=== PATIENT | female | born 1950 | race Caucasian/White ===

== ENCOUNTER 2016-11-10 14:32 | Emergency (ER) | payer MEDICARE ==
[~2016-11-10] VITALS: Ht 170.2 cm; Wt 83.9 kg
[2016-11-10 14:35] VITALS: BP 151/97; PULSE 137; RESP 16; TEMP 97.6; O2SAT 99
--- NOTE | 2016-11-10 14:37 | NUR ---
Placed on staff development coordinator rn, blood pressure machine and pulse oximeter. To gown for exam. Side rails up.
--- NOTE | 2016-11-10 14:37 | NUR ---
Recieved Pt in bed 3. Pt was brought in by EMT. Pt was at the [facility]. Pt c/o heart palpitation since last night 11/09/16. Pt states feeling SOB while walking up and down the stairs. Pt denies pain, discomfort, N/V.
--- NOTE | 2016-11-10 14:38 | NUR ---
Dr. Ramirez at the bedside evaluating Pt. Currently awaiting new orders.
[2016-11-10] MEDS ORDERED: NACL 0.9% 1,000 ML IV ONE (14:45)
[2016-11-10] MEDS ORDERED: METOPROLOL TARTRATE 5 MG/5 ML VIAL IVP ONE (14:45)
[2016-11-10] MEDS ORDERED: ASPIRIN 325 MG TABLET PO ONE (14:45)
[2016-11-10 14:59] LABS: BASOPHILS % (AUTO) 0.6 % (0.0-2.0); EOSINOPHILS # (AUTO) 0.1 K/uL (0.0-0.4); EOSINOPHILS % (AUTO) 1.7 % (0.0-4.0); HEMATOCRIT 43.6 % (36-48); HEMOGLOBIN 14.9 g/dL (12.0-16.0); LYMPHOCYTES # (AUTO) 2.1 K/uL (1.0-5.5); LYMPHOCYTES % (AUTO) 27.2 % (20.5-51.5); MEAN CORPUSCULAR HEMOGLOBIN 31 pg (27-31); MEAN CORPUSCULAR HGB CONC 34 % (32-36); MEAN CORPUSCULAR VOLUME 89 fL (79.0-98.0); MONOCYTES # (AUTO) 0.6 K/uL (0.0-1.0); MONOCYTES % (AUTO) 7.9 % (1.7-9.3); NEUTROPHILS # (AUTO) 4.8 K/uL (1.8-7.7); NEUTROPHILS % (AUTO) 62.6 % (40.0-70.0); PLATELET COUNT (AUTO) 201 K/uL (130-430); WHITE BLOOD COUNT (AUTO) 7.6 K/uL (4.8-10.8)
--- NOTE | 2016-11-10 15:11 | NUR ---
Radiology at the bedside performing cxr.
[2016-11-10 15:13] LABS: PROTHROMBIN TIME 10.4 SECS (9.5-12.5)
[2016-11-10 15:16] LABS: ALBUMIN 3.9 g/dL (3.4-4.8); CALCIUM 9.5 mg/dL (8.4-11.0); CREATININE 0.93 mg/dL (0.55-1.30); POTASSIUM 4.5 mmol/L (3.5-5.1); TOTAL BILIRUBIN 0.3 mg/dL (0.0-1.0); TOTAL PROTEIN, SERUM 7.9 g/dL (6.4-8.3)
--- NOTE | 2016-11-10 15:58 | NUR ---
Assisted Pt to the bathroom. Pt ambulated to the bathroom with minimal assist. Non slip sock provided. Gait steady.
--- NOTE | 2016-11-10 16:30 | NUR ---
Pt resting. Chest rise and fall noted. No s/s of pain or discomfort. will continue to monitor.
--- NOTE | 2016-11-10 18:00 | NUR ---
Assisted Pt to the bathroom. Gait steady.
--- NOTE | 2016-11-10 18:54 | NUR ---
updated Pt on transfer. Pt made aware Pt will be transfering to [facility]. Pt's son at the bedside. Informed Pt to call if Pt needs assistance with anything. Pt verbalized understanding. Will endorse oncoming RN to follow up with D/C orders from [facility].
--- NOTE | 2016-11-10 19:16 | NUR ---
Patient to be transferred to [facility] [phone]. Is being transferred due to higher level of care. Receiving facility has accepting physician and available space. ER physician has signed transfer form. Patient or responsible green party has agreed to transfer and signed form. Patient belongings inventoried and will be sent with patient. Copy of nursing notes, lab reports, EKG, Physicians Orders and X-rays to be sent with patient. Report called to Monika HERRERA at receiving facility. Receiving physician is Dr. Lui. [facility] has been called for transfer. ETA is 1945.
--- NOTE | 2016-11-10 19:20 | NUR ---
hand off to mat packer Stevan HERRERA
--- NOTE | 2016-11-10 19:25 | NUR ---
Pt is resting comfortably, but still complaining of chest palpatations. VSS. Will continue to monitor via machine setter. No other injuries or complaints mentioned/noted. No distress noted.
[2016-11-10 19:45] VITALS: BP 149/74; PULSE 74; RESP 20; TEMP 97.5; O2SAT 98
== END 2016-11-10 19:45 | disposition short-term general hospital (02) ==
LOC: SED 14:32
DX: I48.91 Unspecified atrial fibrillation (principal); Z91.02 Food additives allergy status
CPT/HCPCS: 36415; 71010; 80053; 84484; 85025; 85610; 85730; 93005; 96361; 96374; 99285; J3490; J7030

== ENCOUNTER 2018-02-11 20:08 | Emergency (ER) | payer MEDICARE, MEDICAID ==
[~2018-02-11] VITALS: Ht 172.7 cm; Wt 81.2 kg
[2018-02-11 20:15] VITALS: BP_SYST 151
[2018-02-11] MEDS ORDERED: NACL 0.9% 1,000 ML IV ONE (20:25)
[2018-02-11] MEDS ORDERED: ASPIRIN 81 MG TAB.CHEW PO ONE (20:30)
[2018-02-11 21:34] LABS: BASOPHILS % (AUTO) 0.6 % (0.0-2.0); EOSINOPHILS # (AUTO) 0.2 K/uL (0.0-0.4); EOSINOPHILS % (AUTO) 3.9 % (0.0-4.0); HEMATOCRIT 36.2 % (36-48); HEMOGLOBIN 12.4 g/dL (12.0-16.0); LYMPHOCYTES # (AUTO) 2.5 K/uL (1.0-5.5); LYMPHOCYTES % (AUTO) 44.1 % (20.5-51.5); MEAN CORPUSCULAR HEMOGLOBIN 32 pg (27-31); MEAN CORPUSCULAR HGB CONC 34 % (32-36); MEAN CORPUSCULAR VOLUME 93 fL (79.0-98.0); MONOCYTES # (AUTO) 0.6 K/uL (0.0-1.0); MONOCYTES % (AUTO) 9.9 % (1.7-9.3); NEUTROPHILS # (AUTO) 2.4 K/uL (1.8-7.7); NEUTROPHILS % (AUTO) 41.5 % (40.0-70.0); PLATELET COUNT (AUTO) 205 K/uL (130-430); RED CELL DISTRIBUTION WIDTH 12.7 % (9.0-15.0); WHITE BLOOD COUNT (AUTO) 5.7 K/uL (4.8-10.8)
[2018-02-11 21:50] LABS: CALCIUM 8.8 mg/dL (8.4-11.0); CREATININE 0.88 mg/dL (0.55-1.30); POTASSIUM 3.9 mmol/L (3.5-5.1); PROTHROMBIN TIME 9.9 SECS (9.5-12.5)
[2018-02-11 21:55] LABS: ALBUMIN 3.8 g/dL (3.4-4.8); TOTAL BILIRUBIN 0.3 mg/dL (0.0-1.0)
[2018-02-11] MEDS ORDERED: ONDANSETRON HCL 4 MG/2 ML VIAL IVP ONE (22:00)
[2018-02-11 22:20] LABS: BILIRUBIN,URINE NEGATIVE (NEGATIVE); BLOOD, URINE NEGATIVE (NEGATIVE); CLARITY/URINE CLEAR (CLEAR); COLOR,URINE YELLOW (YELLOW); GLUCOSE,URINE NEGATIVE (NEGATIVE); KETONES,URINE NEGATIVE (NEGATIVE); LEUKOCYTE ESTERASE ,URINE 1+ (NEGATIVE); NITRITE, URINE NEGATIVE (NEGATIVE); PROTEIN URINE NEGATIVE (NEGATIVE); UROBILINOGEN,URINE 0.2 (0.2-1.0)
[2018-02-11 22:27] LABS: BACTERIA,URINE RARE /HPF (None Seen); RBC,URINE 0-3 /HPF (0-3); WBC,URINE 0-3 /HPF (0-3)
[2018-02-11 22:28] LABS: MUCUS,URINE None Seen /LPF (None Seen)
[2018-02-11 22:36] LABS: CKMB RELATIVE INDEX 1.4 (0.0-2.9)
[2018-02-11] MEDS ORDERED: cefTRIAXone 1 GM IVPB PREMIX 50 ML IV ONE (22:45)
[2018-02-11 23:20] VITALS: BP_SYST 141
== END 2018-02-11 23:20 | disposition home or self-care (01) ==
LOC: SED 20:08
DX: F41.9 Anxiety disorder, unspecified (principal); N39.0 Urinary tract infection, site not specified; K21.9 Gastro-esophageal reflux disease without esophagitis; I10 Essential (primary) hypertension; I48.91 Unspecified atrial fibrillation; Z88.2 Allergy status to sulfonamides; Z88.5 Allergy status to narcotic agent; Z91.041 Radiographic dye allergy status
CPT/HCPCS: 36415; 71045; 80053; 81000; 82550; 82553; 83690; 84484; 85025; 85610; 85730; 87086; 93005; 96365; 99285; J0696; J7030; J2405

== ENCOUNTER 2018-05-26 07:57 | Emergency (ER) | payer MEDICARE, MEDICAID ==
[~2018-05-26] VITALS: Ht 172.7 cm; Wt 81.2 kg
[2018-05-26 08:00] VITALS: BP_SYST 121
[2018-05-26] MEDS ORDERED: HYDROcodone/ACETAMIN 10-325 MG TAB PO ONE (08:45)
[2018-05-26 08:54] LABS: BASOPHILS % (AUTO) 0.9 % (0.0-2.0); EOSINOPHILS # (AUTO) 0.2 K/uL (0.0-0.4); EOSINOPHILS % (AUTO) 3.2 % (0.0-4.0); HEMATOCRIT 40.5 % (36-48); LYMPHOCYTES # (AUTO) 1.6 K/uL (1.0-5.5); LYMPHOCYTES % (AUTO) 34.2 % (20.5-51.5); MEAN CORPUSCULAR HEMOGLOBIN 30 pg (27-31); MEAN CORPUSCULAR HGB CONC 32 % (32-36); MEAN CORPUSCULAR VOLUME 92 fL (79.0-98.0); MONOCYTES # (AUTO) 0.4 K/uL (0.0-1.0); MONOCYTES % (AUTO) 8.4 % (1.7-9.3); NEUTROPHILS # (AUTO) 2.5 K/uL (1.8-7.7); NEUTROPHILS % (AUTO) 53.3 % (40.0-70.0); PLATELET COUNT (AUTO) 234 K/uL (130-430); RED BLOOD CELL COUNT(AUTO) 4.41 MIL/uL (4.2-6.2); WHITE BLOOD COUNT (AUTO) 4.7 K/uL (4.8-10.8)
[2018-05-26 09:10] LABS: CALCIUM 9.4 mg/dL (8.4-11.0); CREATININE 0.77 mg/dL (0.55-1.30)
[2018-05-26 09:19] LABS: ALBUMIN 3.9 g/dL (3.4-4.8); TOTAL BILIRUBIN 0.5 mg/dL (0.0-1.0)
[2018-05-26 09:23] LABS: BILIRUBIN,URINE NEGATIVE (NEGATIVE); BLOOD, URINE NEGATIVE (NEGATIVE); CLARITY/URINE CLEAR (CLEAR); COLOR,URINE YELLOW (YELLOW); GLUCOSE,URINE NEGATIVE (NEGATIVE); KETONES,URINE NEGATIVE (NEGATIVE); LEUKOCYTE ESTERASE ,URINE 1+ (NEGATIVE); NITRITE, URINE NEGATIVE (NEGATIVE); PH,URINE 6.5 (5.0-8.0); PROTEIN URINE NEGATIVE (NEGATIVE); UROBILINOGEN,URINE 0.2 (0.2-1.0)
[2018-05-26 09:52] LABS: BACTERIA,URINE FEW /HPF (None Seen); MUCUS,URINE 1+ /LPF (None Seen); RBC,URINE 0-3 /HPF (0-3)
[2018-05-26 10:25] VITALS: BP_SYST 118
== END 2018-05-26 10:25 | disposition home or self-care (01) ==
LOC: SED 07:57
DX: I88.0 Nonspecific mesenteric lymphadenitis (principal); I10 Essential (primary) hypertension; I48.91 Unspecified atrial fibrillation; Z88.5 Allergy status to narcotic agent; Z88.2 Allergy status to sulfonamides; Z91.041 Radiographic dye allergy status
CPT/HCPCS: 36415; 80053; 81000-TC; 82150-TC; 83690-TC; 85025; 85610-TC; 85730-TC; 87086; 99285